=== PATIENT | female | born 1990 | race Caucasian/White ===

== ENCOUNTER 2020-10-31 21:45 | Emergency (ER) | payer OTHER ==
--- NOTE | 2020-10-31 22:21 | ED Physician Documentation ---
History of Present Illness - Stated complaint Stated Complaint: COVID +, LT ARM PX - History obtained from History obtained from: Patient - History of Present Illness Timing: Yesterday Pain level now: 3 Improved by: nothing Worsened by: palpation - Additonal information Additional information: patient was recently discharged from another facility after being treated for covid and pneumonia (per patient). presents tonight c/o LUE pain from elbow to shoulder. mild redness left elbow Review of Systems Constitutional: reports: Reviewed and negative Cardiac: reports: Reviewed and negative Respiratory: reports: Cough (improving, nonproductive). denies: Dyspnea Skin: reports: Rash Musculoskeletal: reports: Extremity pain, Joint pain Neurologic: denies: Focal weakness, Numbness PD PAST MEDICAL HISTORY - Past Medical History Past Medical History: No - Past Surgical History Past Surgical History: No - Present Medications Home Medications: Ambulatory Orders Medication Instructions Recorded Confirmed Meclizine [Antivert] 10/31/20 Omeprazole 10/31/20 10/31/20 Ondansetron [Zuplenz] 10/31/20 QUEtiapine [SEROquel] 10/31/20 hydrOXYzine HCL [Hydroxyzine HCl] 10/31/20 Cephalexin [Keflex] 500 mg PO Q6H #28 capsule 11/01/20 - Allergies Allergies/Adverse Reactions: Allergies Allergy/AdvReac Type Severity Reaction Status Date / Time latex Allergy Rash Verified 10/31/20 22:24 PD ED PE NORMAL - Vitals Vital signs reviewed: Yes - General General: Alert and oriented X 3, No acute distress, Well developed/nourished - Neck Neck: Supple, no meningeal sign - Respiratory Respiratory: No respiratory distress, Clear bilaterally - Extremities Extremities: Normal ROM s pain, No edema PD ED PE EXPANDED - Extremities JACKSON UE/Hands Visual: 1 - rash (faintly marginated erythema with mild tenderness) 2 - bruising (echymosis which patient indicates was site of venipuncture during recent hospital stay) Results - Vitals Vitals: Oxygen O2 Source Room air - Rads (name of study) LUE US Radiology: Prelim report reviewed, See rad report PD MEDICAL DECISION MAKING - ED course Complexity details: reviewed results, re-evaluated patient, considered differential, d/w patient ED course: superficial thrombosis on US. the erythema on exam is limited to medial aspect of her right elbow and there is no palpable cord. will rx keflex to cover possible cellulitis, although the erythema is more likely a result of thrombophlebitis. Departure - Departure Disposition: 01 Home, Self Care Clinical Impression: Superficial thrombophlebitis Qualifiers: Superficial thrombophlebitis-Involved body area: upper extremity Laterality: left Qualified Code(s): I80.8 - Phlebitis and thrombophlebitis of other sites Condition: Good Instructions: ED Phlebitis Superficial Follow-Up: ELSIE WESTBROOK DO [Primary Care Provider] - Prescriptions: Cephalexin [Keflex] 500 mg PO Q6H #28 capsule Discharge Date/Time: 11/01/20 03:36
[2020-10-31 22:23] VITALS: BP 121/88
[2020-11-01] MEDS ORDERED: cephALEXin 250 MG CAPSULE PO STA (03:00)
--- NOTE | 2020-11-01 11:57 | Ultrasound Report ---
PROCEDURE: Duplex Ext Veins Left INDICATIONS: pain, swelling, recent IV access TECHNIQUE: Real-time imaging, as well as color and pulse Doppler interrogation, were performed of the lower extr emity deep veins from the inguinal ligament to the popliteal fossa. COMPARISON: None. FINDINGS: The deep veins are normally compressible, and free of intraluminal thrombus. Color and pu lse Doppler demonstrate normal phasic intraluminal flow. There is normal augmentation response to di stal compression maneuver. The mid to distal arm, and proximal to mid forearm basilic vein is occlud ed with hypoechoic incompressible thrombus. IMPRESSION: 1. Negative for left upper extremity deep venous thrombosis. 2. Acute basilic vein superficial thrombosis. Findings concur with preliminary interpretation. Reviewed by: Silver Vo on 11/01/2020 11:56 AM [facility] Approved by: Silver Vo on 11/01/2020 11:56 AM [facility] Station ID: [id number]
== END 2020-11-01 03:36 | disposition home or self-care (01) ==
LOC: ED 21:45
DX: I82.612 Acute embolism and thrombosis of superficial veins of left upper extremity (principal); Z86.19 Personal history of other infectious and parasitic diseases
CPT/HCPCS: 93971; 99283; 99284; A9270